=== PATIENT | female | born 1940 | race Caucasian/White ===

== ENCOUNTER 2019-07-23 17:25 | Emergency (ER) | payer MEDICARE ==
[~2019-07-23] VITALS: Ht 170.2 cm; Wt 103.4 kg
[~2019-07-23 17:25] MED LIST: ALBU2.5V14 NEB; CIPR500T94 PO; LEVO100T5 PO; METH4TAB2 PO; PARO25TA11 PO; PROM118S3 PO
--- NOTE | 2019-07-23 17:52 | PHYS DOC ---
Past History Past Medical History: Anxiety, Depression, High Cholesterol, Hypothyroid (CIPRIANO ABBOTT DO) Smoking: Non-smoker Alcohol Use: None Drug Use: None (CIPRIANO ABBOTT DO) Adult General Chief Complaint Chief Complaint: ALTERED MENTAL STATUS HPI HPI Patient is a 79-year-old female presents with suicidal thoughts, wanting to , however does not have any kind of plan. This is been triggered by recent financial events and other stressors. She denies having done anything to hurt herself. Denies any chest pain or palpitations. She was at her primary care physician's office when symptoms became worse. She was given a half milligram of sublingual Ativan which improved the symptoms somewhat. She was brought in by EMS due to these thoughts.[] (CIPRIANO ABBOTT DO) Review of Systems Review of Systems Constitutional: Denies fever or chills [] Eyes: Denies change in visual acuity, redness, or eye pain [] HENT: Denies nasal congestion or sore throat [] Respiratory: Denies cough or shortness of breath [] Cardiovascular: No chest pain or palpitations[] GI: Denies abdominal pain, nausea, vomiting, bloody stools or diarrhea [] : Denies dysuria or hematuria [] Musculoskeletal: Denies back pain or joint pain [] Integument: Denies rash or skin lesions [] Neurologic: Denies headache, focal weakness or sensory changes [] Endocrine: Denies polyuria or polydipsia [] All other systems were reviewed and found to be within normal limits, except as documented in this note. (CIPRIANO ABBOTT DO) Allergies Allergies Allergies Coded Allergies Type Severity Reaction Last Updated Verified No Known Drug Allergies 11/15/14 No (CIPRIANO ABBOTT DO) Physical Exam Physical Exam Constitutional: Well developed, well nourished, no acute distress, non-toxic appearance. [] HENT: Normocephalic, atraumatic, bilateral external ears normal, oropharynx moist, no oral exudates, nose normal. [] Eyes: PERRLA, EOMI, conjunctiva normal, no discharge. [] Neck: Normal range of motion, no tenderness, supple, no stridor. [] Cardiovascular:Heart rate regular rhythm, no murmur [] Lungs & Thorax: Bilateral breath sounds clear to auscultation [] Abdomen: Bowel sounds normal, soft, no tenderness, no masses, no pulsatile masses. [] Skin: Warm, dry, no erythema, no rash. [] Back: No tenderness, no CVA tenderness. [] Extremities: No tenderness, no cyanosis, no clubbing, ROM intact, no edema. [] Neurologic: Sleepy and oriented X 3, normal motor function, normal sensory function, no focal deficits noted. [] Psychologic: Affect flat, mood depressed. [] (CIPRIANO ABBOTT DO) EKG EKG EKG shows a sinus rhythm at 69 bpm, normal axis, normal QTC, no ST elevations. No terminal 40 ms QRS prolongation lead aVR. Interpreted by me at 1753.[] (CIPRIANO ABBOTT DO) Radiology/Procedures Radiology/Procedures [] (CIPRIANO ABBOTT DO) Course & Med Decision Making Course & Med Decision Making Pertinent Labs and Imaging studies reviewed. (See chart for details) []ED course: Patient care was endorsed to the day care supervisor ER physician at 1800 with labs and possible mental health evaluation. (CIPRIANO ABBOTT DO) Course & Med Decision Making The patient's labs are unremarkable. Her urinalysis is significant for UTI. I have given her 1 g of Rocephin in the ED. I will discharge her on 5 additional days of Macrobid. The psychiatrist believes the patient is safe for discharge to home. He would like her to continue her Paroxetine and has asked me to provide a short course of low-dose Ativan for her breakthrough anxiety. I have agreed. The patient will follow up with her primary care physician and consider counseling. She is stable for discharge at this time. (OLLIE ROSENTHAL DO) Dragon Disclaimer Dragon Disclaimer This electronic medical record was generated, in whole or in part, using a voice recognition dictation system. (CIPRIANO ABBOTT DO) Departure Departure: Impression: Primary Impression: Social anxiety disorder Additional Impression: Depression Disposition: 01 HOME/RESIDENCE PRIOR TO ADM Condition: STABLE Referrals: TERESA LUCAS MD (PCP) Patient Instructions: Anxiety and Panic Attacks, [id number] Scripts Nitrofurantoin Monohyd/M-Cryst (MACROBID 100 MG CAPSULE) 100 Mg Capsule 1 CAP PO BID for UTI, #10 CAP Prov: OLLIE ROSENTHAL DO 07/23/19 Alprazolam (ALPRAZOLAM) 0.5 Mg Tablet 1 TAB PO TID PRN for ANXIETY / AGITATION, #30 TAB Prov: OLLIE ROSENTHAL DO 07/23/19 Problem Qualifiers Additional Impression: Depression Depression Type: dysthymia Qualified Codes: F34.1 - Dysthymic disorder CIPRIANO ABBOTT DO Jul 23, 2019 17:52 OLLIE ROSENTHAL DO Jul 23, 2019 20:36
--- NOTE | 2019-07-23 18:00 | EKG ---
[address] [address] Test Date: 2019-07-23 Test Time: 17:49:03 Pat Name: WICHO HUNT Department: Room: Gender: F Android Developer: : 1940 Requested By: CIPRIANO ABBOTT Order Number: [id number] Reading MD: Measurements Intervals [place] Rate: 69 P: 64 OR: 142 QRS: 21 QRSD: 94 T: 41 QT: 408 QTc: 439 Interpretive Statements SINUS RHYTHM NORMAL ECG RI6.01 No previous ECG available for comparison
[2019-07-23 18:01] LABS: BASO % 1 % (0-3); EOS # 0.1 x10^3/uL (0.0-0.7); EOS % 1 % (0-3); HEMATOCRIT 40.7 % (36.0-47.0); HEMOGLOBIN 13.5 g/dL (12.0-15.5); LYMPH % 27 % (24-48); MEAN CORPUSCULAR HEMOGLOBIN 31 pg (25-35); MEAN CORPUSCULAR HGB CONC 33 g/dL (31-37); MEAN CORPUSCULAR VOLUME 93 fL (79-100); MONO # 0.6 x10^3/uL (0.0-1.1); MONO % 8 % (0-9); NEUT # 4.8 x10^3uL (1.8-7.7); NEUT % 63 % (31-73); PLATELET COUNT 347 x10^3/uL (140-400); RED BLOOD COUNT 4.39 x10^6/uL (3.50-5.40); RED CELL DISTRIBUTION WIDTH 14.5 % (11.5-14.5); WHITE BLOOD COUNT 7.6 x10^3/uL (4.0-11.0)
[2019-07-23 18:17] LABS: ALBUMIN 3.7 g/dL (3.4-5.0); ALBUMIN/GLOBULIN RATIO 1.1 (1.0-1.7); CALCIUM 9.4 mg/dL (8.5-10.1); CREATININE 0.9 mg/dL (0.6-1.0); GFR 60.7; POTASSIUM 3.7 mmol/L (3.5-5.1); TOTAL BILIRUBIN 0.5 mg/dL (0.2-1.0); TOTAL PROTEIN 7.1 g/dL (6.4-8.2)
[2019-07-23 18:20] LABS: ETHANOL < 10 mg/dL (0-10); SALIC 0.8 mg/dL (2.8-20.0)
[2019-07-23 18:37] LABS: BARBITURATES NEG (NEG); BENZODIAZEPINES POS (NEG); CANNABINOIDS NEG (NEG); COCAINE NEG (NEG); METHADONE NEG (NEG); OPIATES NEG (NEG); PHENCYCLIDINE NEG (NEG)
[2019-07-23 18:38] LABS: AMPHETAMINE/METHAMPHETAMINE NEG (NEG)
[2019-07-23 18:42] LABS: BILIRUBIN,URINE NEG (NEG); CLARITY,URINE CLOUDY; COLOR,URINE YELLOW; GLUCOSE,URINE NEG (NEG); NITRITE,URINE NEG (NEG); UROBILINOGEN,URINE 0.2 mg/dL (0.2 mg/dL)
[2019-07-23 18:43] LABS: BACTERIA,URINE MOD /HPF (0-FEW); RBC,URINE OCC /HPF (0-2); SQUAMOUS EPITHELIAL CELL,UR MOD /LPF
[2019-07-23] MEDS ORDERED: IV NORMAL SALINE 50ML 50 ML ONE (19:36)
[2019-07-23] MEDS ORDERED: cefTRIAXone SODIUM 1 GM VIAL ONE (19:36)
[2019-07-23 20:01] VITALS: BP 154/74
[2019-07-23] MEDS ORDERED: ALPR0.5T6 PO (20:36)
[2019-07-23] MEDS ORDERED: NITR100C62 PO (20:37)
== END 2019-07-23 20:40 | disposition home or self-care (01) ==
LOC: ER 17:25
DX: F41.8 Other specified anxiety disorders (principal); F32.9 Major depressive disorder, single episode, unspecified; E78.00 Pure hypercholesterolemia, unspecified; E03.9 Hypothyroidism, unspecified
CPT/HCPCS: 36415; 80053; 80307; 80329; 81001; 83735; 85025; 87086; 93005; 96365; 99285; G0480; J0696; 82003